=== PATIENT | female | born 1970 | race Caucasian/White ===

== ENCOUNTER 2021-09-26 09:51 | Emergency (ER) | payer OTHER, MEDICAID ==
[~2021-09-26] VITALS: Ht 155 cm; Wt 62.0 kg
[~2021-09-26 09:51] MED LIST: ZPAK PO
[2021-09-26] MEDS ORDERED: SUPER THERAVIT1 EACH PO (10:06)
[2021-09-26] MEDS ORDERED: METFORMIN HCL500 M3 PO (10:06)
[2021-09-26 10:53] LABS: URINE BILIRUBIN NEGATIVE (Negative); URINE BLOOD 3+ (Negative); URINE CLARITY SL CLOUDY; URINE COLOR YELLOW; URINE GLUCOSE-RANDOM NEGATIVE (Negative); URINE KETONES NEGATIVE (Negative); URINE LEUKOCYTES 1+ (Negative); URINE NITRITE NEGATIVE (Negative); URINE PROTEIN NEGATIVE (Negative); URINE SPECIFIC GRAVITY 1.025 (1.005-1.030); URINE UROBILINOGEN 0.2 E.U./dl (0.2-1.0)
[2021-09-26 11:01] LABS: BACTERIA 1-9 Few /HPF (None Seen); MUCUS None Seen strn/LPF (None Seen); SQUAMOUS >10 Many /LPF (0-3)
[2021-09-26 11:16] LABS: ABSOLUTE BASOPHILS 0.1 thou/uL (0.0-0.2); ABSOLUTE EOSINOPHILS 0.3 thou/uL (0.0-0.7); ABSOLUTE MONOCYTES 0.4 thou/uL (0.0-1.2); ABSOLUTE NEUTROPHILS 4.8 thou/uL (1.6-8.1); BASOPHILS 0.9 %; EOSINOPHILS 3.4 %; HEMATOCRIT 38.1 % (37.0-47.0); HEMOGLOBIN 12.9 gm/dL (12.0-15.0); LYMPHOCYTES 26.3 %; MCH 29.7 pg (26.0-34.0); MCHC 33.9 g/dL (28.0-37.0); MCV 87.5 fL (80.0-100.0); NUCLEATED RBCS 0 /100WBC; PLATELET COUNT* 288 thou/uL (150-400); POLYS 64.4 %; RBC 4.35 mil/uL (4.20-5.00); RDW-CV 13.2 % (10.5-14.5); WBC 7.4 thou/uL (4.0-11.0)
[2021-09-26 11:27] LABS: ALBUMIN 3.8 g/dL (3.4-5.0); CREATININE 0.6 mg/dL (0.6-1.3); POTASSIUM 3.9 mmol/L (3.5-5.1); TOTAL BILIRUBIN 0.3 mg/dL (<0.1-1.0); TOTAL PROTEIN 7.6 g/dL (6.4-8.2)
--- NOTE | 2021-09-26 12:26 | EKG ---
[place] [address] ELECTROCARDIOGRAM REPORT Name: BLAKEBELIA CentenoJARET Domi Room: [facility]#: [id number] Admission: 09/26/21 Attend Phys: Discharge: Date of : 70 Date of Service: 09/26/21 1108 Report #: [id number] THIS REPORT FOR: //name// [facility] ED Test Date: 2021-09-26 Test Time: 11:08:38 Pat Name: ADRIAN TAYLOR Department: Room: Gender: Sales Technician: : 1970 Requested By: Martir Barrera Order Number: [id number] MD: Leno Martinez Measurements Intervals [place] Rate: 74 P: 56 [place]: 150 QRS: 6 QRSD: 84 T: 6 QT: 364 QTc: 404 Interpretive Statements Sinus rhythm Low voltage, precordial leads No previous ECG available for comparison Electronically Signed On 09-26-2021 12:26:08 [employer] by Leno Martinez [email or web address] <ELECTRONICALLY SIGNED> By: Leno Martinez MD, [facility] 09/26/21 1226 1108 Leno Martinez MD, FAC /EPI
[2021-09-26] MEDS ORDERED: CEPHALEXIN500 MG PO (12:49)
[2021-09-26 12:59] VITALS: BP 126/78
== END 2021-09-26 13:00 | disposition home or self-care (01) ==
LOC: M.ERS 09:51
PROVIDERS: Physician Assistant
DX: N39.0 Urinary tract infection, site not specified (principal); R10.9 Unspecified abdominal pain; E11.9 Type 2 diabetes mellitus without complications; Z79.899 Other long term (current) drug therapy